=== PATIENT | male | born 1980 | race Caucasian/White ===

== ENCOUNTER 2024-01-25 17:02 | Emergency (ER) | payer OTHER, BC ==
[2024-01-25] MEDS: Take Home: Acetaminophen/HYDROcodone 325-5 MG, 5 Tab Pack PO ONE (18:19)
[2024-01-25] MEDS: Diphtheria,Pertussis(Acell),Tetanus Vaccine 0.5 ML Syringe IM ONE (18:19)
[2024-01-25] MEDS: Cephalexin 500 MG Cap PO ONE (18:19)
== END 2024-01-25 18:50 | disposition home or self-care (01) ==
LOC: DL.ED 17:02
DX: S62.522A Displaced fracture of distal phalanx of left thumb, initial encounter for closed fracture (principal); Z86.16 Personal history of COVID-19; Z23 Encounter for immunization; W23.0XXA Caught, crushed, jammed, or pinched between moving objects, initial encounter
CPT/HCPCS: 12002; 73140; 90471; 90715; 99282; 99283; A9270